=== PATIENT | male | born 1940 | race Caucasian/White ===

== ENCOUNTER → 2020-04-26 | Day surgery (SDC) | payer MEDICARE, OTHER ==
[~2020-04-26] MED LIST: COZAAR50 MG PO; MOBIC7.5 MG PO; PROSCAR5 MG PO; TAMSULOSIN HCL0.4 MG PO
[2020-04-26 08:11] LABS: HCT 47.2 % (42.0-52.0); HGB 16.1 g/dl (13.2-18.0); MCH 29.7 pg (25.0-31.0); MCHC 34.1 g/dL (32.0-36.0); MCV 87.1 fL (78.0-100.0); RBC 5.42 M/uL (4.70-6.00); RDW 12.6 % (11.5-14.0); WBC 10.1 K/uL (4.0-10.5)
[2020-04-26 08:49] LABS: ALBUMIN 4.2 g/dL (3.4-5.0); BILIRUBIN - TOTAL 1.2 mg/dL (0.2-1.0); BUN/CREAT RATIO (CALC) 16.9 RATIO; CREATININE 1.24 mg/dL (0.67-1.17); GLOBULIN (CALCULATION) 3.2 g/dL; POTASSIUM 4.1 mmol/L (3.5-5.1); TOTAL PROTEIN 7.4 g/dL (6.4-8.2)
== END | disposition home or self-care (01) ==
LOC: FAS 07:44
PROVIDERS: Surgery
DX: Z12.11 Encounter for screening for malignant neoplasm of colon (principal); K57.30 Diverticulosis of large intestine without perforation or abscess without bleeding; K29.70 Gastritis, unspecified, without bleeding; K63.5 Polyp of colon; K21.9 Gastro-esophageal reflux disease without esophagitis; K31.89 Other diseases of stomach and duodenum; I10 Essential (primary) hypertension; Z88.0 Allergy status to penicillin; Z91.030 Bee allergy status; Z98.890 Other specified postprocedural states; Z90.49 Acquired absence of other specified parts of digestive tract; Z96.651 Presence of right artificial knee joint; Z20.822 Contact with and (suspected) exposure to COVID-19; Z86.010 Personal history of colon polyps
CPT/HCPCS: 43239; G0105; 36415; 80053; 88305; J2250; J2704; J7120